=== PATIENT | male | born 1980 | race Hispanic/Latino ===

== ENCOUNTER 2016-12-03 12:46 | Emergency (ER) | payer SELFPAY ==
[2016-12-03 13:52] LABS: INFLUENZA A NONE DETECTED (NONE DETECT); INFLUENZA B NONE DETECTED (NONE DETECT)
[2016-12-03] MEDS ORDERED: AMOXICILLIN500 MG PO (14:02)
[2016-12-03 14:15] VITALS: BP 121/74
== END 2016-12-03 14:15 | disposition home or self-care (01) | DRG 153 ==
LOC: ED 12:46
PROVIDERS: Emergency Medicine
DX: J02.0 Streptococcal pharyngitis (principal)